=== PATIENT | male | born 1985 | race Two or more races ===

== ENCOUNTER 2020-03-05 01:50 | Emergency (ER) | payer BC, OTHER ==
[~2020-03-05] VITALS: Ht 182.9 cm; Wt 107.2 kg
[2020-03-05 02:18] VITALS: BP 128/81
[2020-03-05 03:20] LABS: Basophils # (auto) 0 10 ^3/uL (0-0.2); Basophils % (auto) 0.4 % (0.0-2.0); Eosinophils # (auto) 0 10 ^3/uL (0-0.8); Eosinophils % (auto) 0.5 % (0.0-7.0); Hematocrit 42.7 % (41.0-53.0); Hemoglobin 14.4 g/dL (13.5-17.5); Lymphocytes # (auto) 2.1 10 ^3/uL (0.4-5.4); Lymphocytes % (auto) 20.9 % (10.0-50.0); Mean Corpuscular Hgb Conc. 33.7 g/dL (32.0-36.0); Mean Corpuscular Volume 88.9 fL (80.0-100.0); Monocytes # (auto) 0.6 10 ^3/uL (0-1.3); Monocytes % (auto) 5.6 % (0.0-12.0); Neutrophils # (auto) 7.4 10 ^3/uL (1.6-8.6); Neutrophils % (auto) 72.6 % (37.0-80.0); Nucleated Red Blood Cells % 0.1 %; Platelet Count (auto) 331 10^3/uL (140-450); White Blood Cell 10.2 10^3/uL (4.4-10.8)
[2020-03-05 03:46] LABS: Potassium 3.7 mmol/L (3.5-5.1)
[2020-03-05 03:55] LABS: Albumin 4.1 g/dL (3.4-5.0); BUN/Creatinine Ratio 15.6; Bilirubin, Total 0.4 mg/dL (0.2-1.0); Calcium 8.9 mg/dL (8.5-10.1)
== END 2020-03-05 06:00 | disposition left against medical advice (07) ==
LOC: ER 01:52 → EDSEX 01:52 → ER 06:00
DX: R10.9 Unspecified abdominal pain (principal); Z53.21 Procedure and treatment not carried out due to patient leaving prior to being seen by health care provider
CPT/HCPCS: 36415; 80053; 85025